=== PATIENT | male | born 2000 | race Caucasian/White ===

== ENCOUNTER → 2024-12-18 | Outpatient (CLI) | payer OTHER ==
[~2024-12-18] MED LIST: ASPI-1 PO; CEFD1CAP9 PO; CEFD250S26 PO; HYDR1SOL PO; IBUP-1824 PO
[2024-12-18 12:03] LABS: PLATELET COUNT, AUTOMATED 232 10^3/uL (150-450)
[2024-12-18 12:34] LABS: ALT/SGPT 45 U/L (7.0-40); AST/SGOT 23 U/L (<34); CALCIUM LEVEL 9.1 MG/DL (8.5-10.1); CARBON DIOXIDE LEVEL 28 MMOL/L (20-31); CHLORIDE LEVEL 104 MMOL/L (98-107); CREATININE FOR GFR 0.95 MG/DL (0.70-1.30); GLOMERULAR FILTRATION RATE > 90.0 (>60); POTASSIUM SERUM 4.1 MMOL/L (3.5-5.1); SODIUM LEVEL 139 MMOL/L (136-145)
== END ==
LOC: M RAD 10:03
PROVIDERS: ATTEND Registered Nurse
DX: R93.41 Abnormal radiologic findings on diagnostic imaging of renal pelvis, ureter, or bladder (principal); J98.11 Atelectasis; R91.1 Solitary pulmonary nodule; K42.9 Umbilical hernia without obstruction or gangrene